=== PATIENT | male | born 2000 | race Caucasian/White ===

== ENCOUNTER 2022-12-25 16:47 | Emergency (ER) | payer OTHER, SELFPAY ==
[2022-12-25 16:57] VITALS: BP 128/82; PULSE 84; RESP 16; TEMP 36.8; O2SAT 100
[2022-12-25 17:08] VITALS: BP 128/82; PULSE 84; RESP 16; TEMP 36.8; O2SAT 100
--- NOTE | 2022-12-25 17:10 | ED.GENADULT ---
HPI - General Adult General Chief complaint: Eye Problems Stated complaint: Eye Problem Source: patient Mode of arrival: ambulatory Limitations: no limitations History of Present Illness HPI narrative: Patient presents for evaluation of left eye irritation. Symptom onset 2 days ago. He reports redness, and thick green yellow drainage from the affected eye. He now has some right eye discomfort. He does not were glasses or contacts. One of his coworkers came to work with ketan, after his children also had it. He has been using some type of OTC medication for his symptoms. Related Data Allergies Allergy/AdvReac Type Severity Reaction Status Date / Time No Known Allergies Allergy Verified 12/25/22 17:01 Review of Systems Review of Systems: CONSTITUTIONAL: Denies fever, chills, or sweats. EYES: Reports left eye irritation, thick yellow/green drainage and redness. Reports right eye irritation. Denies visual changes ENT: Denies rhinorrhea, congestion, sore throat, or otalgia. CARDIOVASCULAR: Denies chest pain, palpitations, or edema. RESPIRATORY: Denies cough or dyspnea. GASTROINTESTINAL: Denies abdominal pain, nausea, vomiting, or diarrhea. GENITOURINARY: Denies dysuria or hematuria. SKIN: Denies rash or itching. MUSCULOSKELETAL: Denies back pain, joint pain, or myalgia. NEUROLOGIC: Denies headache, numbness, dizziness, or weakness. PSYCHIATRIC: Denies anxiety or depression. PMFSH Past Medical History Medical History No significant past medical history Surgical History Surgical History No significant past surgical history Family History Family History Mother Family history non-contributory Social History Social History Smoking status: Never smoker Substance use: never Living arrangements: with family Additional living arrangements comments: Lives with brother Gender identity (if verbalized by the patient): Male Spiritual care concerns: No Exam Narrative: GENERAL: Well-appearing, well-nourished, and in no acute distress. HEAD: Normocephalic, atraumatic. EYES: PERRLA and EOMI. Left conjunctival injection with thick yellow drainage noted on eyelashes. ENT: Nares clear, no rhinorrhea or epistaxis. Mucous membranes moist. Oropharynx without tonsillar hypertrophy exudate or other lesions. Bilateral TMs pearly enriquez nonbulging NECK: Supple. No adenopathy or masses. No carotid bruits or JVD CHEST: Clear to auscultation. No respiratory distress. No wheezes rales or rhonchi HEART: Regular rate and rhythm. No murmur heard. Normal peripheral pulses. ABDOMEN: Soft, nontender, nondistended, normal active bowel sounds. EXTREMITIES: Normal range of motion. No edema. SKIN: Warm, dry, no rash. NEURO: No focal deficits. Alert and oriented x3. PSYCH: Normal mood and affect. Course Course Emergency Course: This is a 22-year-old male who presented for evaluation of irritation, redness and drainage from left eye for last 2 days after recent pinkeye exposure. Will treat with erythromycin. Follow-up with primary provider. Go to the ER for visual disturbance or worsening symptoms. Patient in agreement with plan of care. Level of Care: Express Care Visit Vital Signs Vital signs: Vital Signs Temperature 36.8 C 12/25/22 16:57 Pulse Rate 84 12/25/22 16:57 Respiratory Rate 16 12/25/22 16:57 Blood Pressure 128/82 12/25/22 16:57 Pulse Oximetry 100 12/25/22 16:57 Oxygen Delivery Room Air 12/25/22 16:57 Temperature 36.8 C 12/25/22 17:08 Pulse Rate 84 12/25/22 17:08 Respiratory Rate 16 12/25/22 17:08 Blood Pressure 128/82 12/25/22 17:08 Pulse Oximetry 100 12/25/22 17:08 Oxygen Delivery Room Air 12/25/22 17:08 Medi
== END 2022-12-25 17:13 | disposition home or self-care (01) ==
PROVIDERS: Emergency Provider Nurse Practitioner
DX: H10.32 Unspecified acute conjunctivitis, left eye (principal)
CPT/HCPCS: 99203; G0463